=== PATIENT | female | born 1970 | race Caucasian/White ===

== ENCOUNTER 2017-07-28 10:55 | Emergency (ER) | payer OTHER ==
[2017-07-28 11:12] VITALS: BP 149/95
[2017-07-28] MEDS ORDERED: Diazepam 5 MG Tab PO ONE (11:18)
[2017-07-28] MEDS ORDERED: HYDROmorphone 1 MG/ML Syringe IM ONE (11:18)
--- NOTE | 2017-07-28 12:28 | EDM.PDOC ---
ED HPI GENERAL MEDICAL PROBLEM - General Chief Complaint: Back Pain or Injury Stated Complaint: BACK SPASMS Time Seen by Provider: 07/28/17 11:06 Source of Information: Reports: Patient History Limitations: Reports: No Limitations - History of Present Illness INITIAL COMMENTS - FREE TEXT/NARRATIVE: The patient presents with right upper back pain. Two days ago she had nausea and vomiting and after vomiting once she developed pain in her right upper back with cramping. She has some tingling in her arms but no weakness. This has happened before. She was seen at the clinic in [place] and they put her on some flexeril but it does not appear to be helping. Onset: Sudden Duration: Day(s): (2) Location: Reports: Back Quality: Reports: Other (cramping) Severity: Severe Improves with: Reports: None Worsens with: Reports: None Associated Symptoms: Reports: No Other Symptoms Upper Back Pain Score (Numeric/FACES): 7 - Related Data Allergies Allergy/AdvReac Type Severity Reaction Status Date / Time codeine Allergy Rash Verified 08/22/16 11:05 morphine Allergy Vomiting Verified 08/22/16 11:05 Home Meds: Home Meds Aspirin [Halfprin] 81 mg PO BRK 08/22/16 [History] Calcium Carbonate [Calcium] 1,200 mg PO DAILY 08/22/16 [History] Cholecalciferol (Vitamin D3) [Vitamin D3] 2,000 unit PO DAILY 08/22/16 [History] Hydrochlorothiazide 25 mg PO DAILY 08/22/16 [History] Lisinopril 20 mg PO BID 08/22/16 [History] Metoprolol Tartrate 50 mg PO BID 08/22/16 [History] Pravastatin [Pravachol] 20 mg PO DAILY 08/22/16 [History] metFORMIN [Glucophage] 500 mg PO BIDMEALS 08/22/16 [History] predniSONE [Prednisone] 20 mg PO DAILY #5 tablet 08/22/16 [Rx] sulfaSALAzine 1,500 mg PO BID 08/22/16 [History] Diazepam [Valium] 5 mg PO TID PRN #20 tablet 07/28/17 [Rx] Flexirle 5 mg PO ASDIRECTED 07/28/17 [History] Past Medical History HEENT History: Reports: Impaired Vision Other HEENT History: glasses 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: Reports: Hypertension 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: Musculoskeletal History: Reports: Arthritis, Fracture Endocrine/Metabolic History: Reports: Diabetes, Type II Dermatologic History: Reports: Psoriasis - Infectious Disease History Infectious Disease History: Reports: Other (See Below) Other Infectious Disease History: History of hep C but cured - Past Surgical History Female Surgical History: Reports: Hysterectomy Social & Family History - Family History Family Medical History: Noncontributory - Tobacco Use Smoking Status *Q: Former Smoker Years of Tobacco use: 36 Packs/Tins Daily: 1 Used Tobacco, but Quit: Yes Month Tobacco Last Used: 3 months Second Hand Smoke Exposure: No - Caffeine Use Caffeine Use: Reports: Coffee, Soda - Recreational Drug Use Recreational Drug Use: No Recreational Drug Type: Reports: Methamphetamine Recreational Drug Use Frequency: Not Used In Over 6 Months ED ROS GENERAL - Review of Systems Review Of Systems: See Below Constitutional: Reports: No Symptoms HEENT: Reports: No Symptoms Respiratory: Reports: No Symptoms Cardiovascular: Reports: No Symptoms Endocrine: Reports: No Symptoms GI/Abdominal: Reports: No Symptoms : Reports: No Symptoms Musculoskeletal: Reports: Back Pain Skin: Reports: No Symptoms ED EXAM, UPPER BACK/NECK PAIN - Physical Exam Exam: See Below Exam Limited By: No Limitations General Appearance: Alert, No Apparent Distress Ears Exam: Normal External Exam Nose Exam: Normal Inspection Head Exam: Atraumatic, Normocephalic Neck Exam: Non-Tender Cardiovascular/Respiratory: Regular Rate, Rhythm, No M/R/G, Normal Breath Sounds , No Respiratory Distress GI/Abdominal: Soft, Non-Tender, No Organomegaly, No Mass Back Exam: Muscle Spasm (Right upper back) Extremities: Normal Inspection Course - Vital Signs Last Recorded V/S: Last Vital Signs Temp 98.2 F 07/28/17 11:09 Pulse 80 07/28/17 11:09 Resp 20 07/28/17 11:09 BP 149/95 H 07/28/17 11:09 Pulse Ox 98 07/28/17 11:09 - Orders/Labs/Meds Meds: Medications Discontinued Medications Generic Name Dose Route Start Last Admin Trade Name Freq PRN Reason Stop Dose Admin Diazepam 10 mg 07/28/17 11:18 07/28/17 11:24 Valium. PO 07/28/17 11:19 10 mg ONETIME ONE Administration Hydromorphone HCl 1 mg 07/28/17 11:18 07/28/17 11:25 Dilaudid IM 07/28/17 11:19 1 mg ONETIME ONE Administration - Re-Assessments/Exams Free Text/Narrative Re-Assessment/Exam: 07/28/17 12:27 I ordered dilaudid 1mg IM and [id number] by mouth. She feels better after that. I will switch her from flexeril to valium. Departure - Departure Time of Disposition: 12:30 Disposition: Home, Self-Care 01 Condition: Good Clinical Impression: Spasm of thoracic back muscle - Discharge Information Prescriptions: Diazepam [Valium] 5 mg PO TID PRN #20 tablet PRN Reason: Pain Referrals: Fredi Cast MD [Primary Care Provider] - 1 Week Forms: ED Department Discharge, ED Return to Work/School Form Additional Instructions: Take the valium instead of the flexeril. Take motrin or aleve for pain. Pleas return if you are worse.
== END 2017-07-28 12:50 | disposition home or self-care (01) ==
LOC: JD.ED 10:55
DX: M62.830 Muscle spasm of back (principal); I10 Essential (primary) hypertension; Z88.5 Allergy status to narcotic agent; Z79.899 Other long term (current) drug therapy; Z79.84 Long term (current) use of oral hypoglycemic drugs; Z87.891 Personal history of nicotine dependence; Z79.82 Long term (current) use of aspirin
CPT/HCPCS: 96372; 99283; A9270; J1170

== ENCOUNTER 2017-09-26 13:51 | Emergency (ER) | payer OTHER ==
[2017-09-26] MEDS ORDERED: Metoprolol Tartrate 50 MG Tab PO ONE (14:10)
--- NOTE | 2017-09-26 16:04 | EDM.PDOC ---
ED HPI GENERAL MEDICAL PROBLEM - General Chief Complaint: Cardiovascular Problem Stated Complaint: RAPID HEART BEAT Time Seen by Provider: 09/26/17 14:02 Source of Information: Reports: Patient, RN Notes Reviewed - History of Present Illness INITIAL COMMENTS - FREE TEXT/NARRATIVE: 47-year-old female comes in with symptoms of about 2-1/2 hours of rapid pounding heart during the night about 10 hours ago and then occurred again at work about 45 minutes ago. Afternoon the episode lasted about 20-30 minutes. He feels like her heart is still "pounding but not near as bad as it was. Does get dizzy with these episodes. She also does get nauseated and vomit with these episodes. He did have an episode or 2 here about 10-14 days ago. She is on medication for hypertension. She is not diabetic. No recent fever chills cough or other unusual symptomatology. - Related Data Allergies Allergy/AdvReac Type Severity Reaction Status Date / Time codeine Allergy Rash Verified 08/22/16 11:05 morphine Allergy Vomiting Verified 08/22/16 11:05 Home Meds: Home Meds Aspirin [Halfprin] 81 mg PO BRK 08/22/16 [History] Calcium Carbonate [Calcium] 1,200 mg PO DAILY 08/22/16 [History] Cholecalciferol (Vitamin D3) [Vitamin D3] 2,000 unit PO DAILY 08/22/16 [History] Hydrochlorothiazide 25 mg PO DAILY 08/22/16 [History] Lisinopril 20 mg PO BID 08/22/16 [History] Metoprolol Tartrate 50 mg PO BID 08/22/16 [History] Pravastatin [Pravachol] 20 mg PO DAILY 08/22/16 [History] metFORMIN [Glucophage] 500 mg PO BIDMEALS 08/22/16 [History] sulfaSALAzine 1,500 mg PO BID 08/22/16 [History] Adalimumab [Humira] 40 mg IM ASDIRECTED 09/26/17 [History] Potassium 99 mg PO DAILY 09/26/17 [History] Past Medical History HEENT History: Reports: Impaired Vision Other HEENT History: glasses 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: Reports: Hypertension 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: Musculoskeletal History: Reports: Arthritis, Fracture Psychiatric History: Reports: Addiction Endocrine/Metabolic History: Reports: Diabetes, Type II Dermatologic History: Reports: Psoriasis - Infectious Disease History Infectious Disease History: Reports: Other (See Below) Other Infectious Disease History: History of hep C but cured - Past Surgical History Female Surgical History: Reports: Hysterectomy Social & Family History - Family History Family Medical History: Noncontributory - Tobacco Use Smoking Status *Q: Former Smoker Years of Tobacco use: 36 Packs/Tins Daily: 1 Used Tobacco, but Quit: Yes Month Tobacco Last Used: 04/23/17 Second Hand Smoke Exposure: No - Caffeine Use Caffeine Use: Reports: Coffee, Soda - Alcohol Use Days Per Week of Alcohol Use: 7 Number of Drinks Per Day: 8 Total Drinks Per Week: 56 - Recreational Drug Use Recreational Drug Use: Yes Drug Use in Last 12 Months: No Recreational Drug Type: Reports: Methamphetamine Recreational Drug Use Frequency: Not Used In Over 6 Months ED ROS GENERAL - Review of Systems Review Of Systems: See Below Constitutional: Denies: Fever, Chills, Diaphoresis HEENT: Denies: Throat Pain, Vertigo Respiratory: Denies: Shortness of Breath ED EXAM, GENERAL - Physical Exam Exam: See Below General Appearance: Alert, Anxious (Mild) Eye Exam: Bilateral Eye: PERRL Throat/Mouth: Normal Inspection Head: Atraumatic. No: Facial Swelling Neck: Supple, Full Range of Motion Respiratory/Chest: No Respiratory Distress, Lungs Clear, Normal Breath Sounds Cardiovascular: Regular Rate, Rhythm GI/Abdominal: Soft, Non-Tender Back Exam: No: CVA Tenderness (L), CVA Tenderness (R) Extremities: Normal Inspection, Normal Range of Motion. No: Pedal Edema, Leg Pain, Increased Warmth, Redness Neurological: Alert, Oriented, No Motor/Sensory Deficits Skin Exam: Warm, Dry, Normal Color EKG INTERPRETATION EKG Date: 09/26/17 Rhythm: NSR [place]: Normal P-Wave: Present QRS: Normal ST-T: Normal Course - Vital Signs Last Recorded V/S: Last Vital Signs Temp 97.1 F 09/26/17 14:01 Pulse 72 09/26/17 16:13 Resp 22 H 09/26/17 16:13 BP 158/88 H 09/26/17 16:13 Pulse Ox 98 09/26/17 16:13 - Orders/Labs/Meds Orders: Active Orders 24 hr Category Date Time Status EKG 12 Lead [EKG Documentation Completion] [RC] STAT Care 09/26/17 14:10 Active Holter Monitor 48 Hours [RC] .PRN Care 09/26/17 15:51 Active Labs: Laboratory Tests 09/26/17 09/26/17 Range/Units 14:44 14:44 WBC 13.24 H (3.98-10.04) K/mm3 RBC 4.22 (3.98-5.22) M/mm3 Hgb 12.9 (11.2-15.7) gm/L Hct 38.5 (34.1-44.9) % MCV 91.2 (79.4-94.8) fl MCH 30.6 (25.6-32.2) pg MCHC 33.5 (32.2-35.5) g/dl RDW Std Deviation 40.2 (36.4-46.3) fL Plt Count 275 (182-369) K/mm3 MPV 9.5 (9.4-12.3) fl Neutrophils % (Manual) 48 (40-60) % Band Neutrophils % 1 (0-10) % Lymphocytes % (Manual) 41 H (20-40) % Atypical Lymphs % 0 % Monocytes % (Manual) 8 (2-10) % Eosinophils % (Manual) 2 (0.7-5.8) % Basophils % (Manual) 0 L (0.1-1.2) Platelet Estimate Adequate RBC Morph Comment Normal Sodium 134 L (136-145) mEq/L Potassium 3.4 L (3.5-5.1) mEq/L Chloride 99 (98-107) mEq/L Carbon Dioxide 26 (21-32) mEq/L Anion Gap 12.4 (5-15) BUN 17 (7-18) mg/dL Creatinine 0.8 (0.55-1.02) mg/dL Est Cr Clr Drug Dosing TNP Estimated GFR (MDRD) > 60 (>60) mL/min BUN/Creatinine Ratio 21.3 H (14-18) Glucose 100 (74-106) mg/dL Calcium 9.1 (8.5-10.1) mg/dL Total Bilirubin 0.2 (0.2-1.0) mg/dL AST 17 (15-37) U/L ALT 33 (14-59) U/L Alkaline Phosphatase 31 L (46-116) U/L Total Protein 6.9 (6.4-8.2) g/dl Albumin 3.6 (3.4-5.0) g/dl Globulin 3.3 gm/dL Albumin/Globulin Ratio 1.1 (1-2) TSH 3rd Generation 4.858 H (0.358-3.74) uIU/mL Meds: Medications Discontinued Medications Generic Name Dose Route Start Last Admin Trade Name Freq PRN Reason Stop Dose Admin Metoprolol Tartrate 50 mg 09/26/17 14:10 09/26/17 14:27 Lopressor PO 09/26/17 14:11 50 mg ONETIME ONE Administration - Re-Assessments/Exams Free Text/Narrative Re-Assessment/Exam: 09/26/17 19:50. Labs did come back relatively normal, EKG was good, he has maintained in sinus rhythm while here in the ED, no ectopy, we did discharge her with a 48 hour Holter monitor. Departure - Departure Time of Disposition: 16:02 Disposition: Home, Self-Care 01 Condition: Fair Clinical Impression: Palpitations, Dizziness Referrals: Fredi Cast MD [Primary Care Provider] - Forms: ED Department Discharge Additional Instructions: 48 hour Holter monitor. Drink plenty of water to maintain hydration, continue current medications as prescribed. Try avoid excess caffeine. Your thyroid is testing mildly low. Follow-up with Dr. Winters in about 3-4 days, call for appointment tomorrow morning. Return to ED if symptoms worsening in any way. - My Orders Last 24 Hours: My Active Orders 09/26/17 14:10 EKG 12 Lead [EKG Documentation Completion] [RC] STAT 09/26/17 15:51 Holter Monitor 48 Hours [RC] .PRN - Assessment/Plan Last 24 Hours: My Active Orders 09/26/17 14:10 EKG 12 Lead [EKG Documentation Completion] [RC] STAT 09/26/17 15:51 Holter Monitor 48 Hours [RC] .PRN
[2017-09-26 16:15] VITALS: BP 158/88
== END 2017-09-26 16:15 | disposition home or self-care (01) ==
LOC: JD.ED 13:51
DX: R42 Dizziness and giddiness (principal); R00.2 Palpitations; I10 Essential (primary) hypertension; E11.9 Type 2 diabetes mellitus without complications; Z87.891 Personal history of nicotine dependence; Z88.5 Allergy status to narcotic agent; Z79.82 Long term (current) use of aspirin; Z79.899 Other long term (current) drug therapy
CPT/HCPCS: 36415; 80053; 84443; 85025; 93005; 93225; 93226; 99285; A9270

== ENCOUNTER 2018-03-30 08:24 | Emergency (ER) | payer OTHER ==
[2018-03-30] MEDS ORDERED: Sodium Chloride 0.9% 10 ML Syringe FLUSH PRN (08:54)
[2018-03-30] MEDS ORDERED: Sodium Chloride 0.9% 1,000 ML IV ONE (08:54)
[2018-03-30] MEDS ORDERED: Magnesium Sulfate/Water 2 GM in Premix Bag 1 BAG IV ONE (09:34)
--- NOTE | 2018-03-30 09:40 | EDM.PDOC ---
ED HPI GENERAL MEDICAL PROBLEM - General Chief Complaint: Cardiovascular Problem Stated Complaint: HIGH BP/HIGH HEART RATE Time Seen by Provider: 03/30/18 08:34 Source of Information: Reports: Patient History Limitations: Reports: No Limitations - History of Present Illness INITIAL COMMENTS - FREE TEXT/NARRATIVE: The patient is a 47-year-old female with a chief complaint of palpitations. This started at about 3 AM. It woke her up from sleep. She had a sudden feeling of her heart racing. She took her pulse and it was around 130. She felt vaguely ill and weak. She continued to try to go back to sleep but didn't get much sleep for the rest of the night. This morning she still just felt mildly ill and generally weak. No chest pain. No shortness of breath. She did have nausea and 1 episode of vomiting this morning. No longer nauseated. She did take her usual morning medications, which do include metoprolol 100 mg, hydrochlorothiazide, and spironolactone. She also takes lisinopril and another 100 mg of metoprolol at night. No fever. No recent illness. No cough or difficulty breathing. She has some mild right jawline dental pain but no facial swelling and the pain isn't severe. No recent immobilization. No lower extremity pain or swelling. No estrogen use. Headache Pain Score (Numeric/FACES): 4 - Related Data Allergies Allergy/AdvReac Type Severity Reaction Status Date / Time codeine Allergy Rash Verified 03/30/18 08:36 morphine Allergy Vomiting Verified 03/30/18 08:36 Home Meds: Home Meds Aspirin [Halfprin] 81 mg PO DAILY 08/22/16 [History] Calcium Carbonate [Calcium] 1,200 mg PO DAILY 08/22/16 [History] Cholecalciferol (Vitamin D3) [Vitamin D3] 2,000 unit PO DAILY 08/22/16 [History] Hydrochlorothiazide 25 mg PO DAILY 08/22/16 [History] Lisinopril 20 mg PO DAILY 08/22/16 [History] Metoprolol Tartrate 100 mg PO BID 08/22/16 [History] Pravastatin [Pravachol] 20 mg PO DAILY 08/22/16 [History] metFORMIN [Glucophage] 500 mg PO BIDMEALS 08/22/16 [History] sulfaSALAzine 1,500 mg PO BID 08/22/16 [History] Adalimumab [Humira] 40 mg IM ASDIRECTED 09/26/17 [History] Cyclobenzaprine [Flexeril] 10 mg PO Q2H PRN 03/30/18 [History] Folic Acid 1 mg PO DAILY 03/30/18 [History] Spironolactone 50 mg PO DAILY 03/30/18 [History] Past Medical History HEENT History: Reports: Impaired Vision Other HEENT History: glasses 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: Reports: Hypertension 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: Musculoskeletal History: Reports: Arthritis, Fracture Psychiatric History: Reports: Addiction Endocrine/Metabolic History: Reports: Diabetes, Type II Dermatologic History: Reports: Psoriasis - Infectious Disease History Infectious Disease History: Reports: Other (See Below) Other Infectious Disease History: History of hep C but cured - Past Surgical History Female Surgical History: Reports: Hysterectomy Social & Family History - Family History Family Medical History: Noncontributory - Tobacco Use Smoking Status *Q: Former Smoker Used Tobacco, but Quit: Yes Month/Year Tobacco Last Used: 2016 - Caffeine Use Caffeine Use: Reports: Coffee - Recreational Drug Use Recreational Drug Use: No ED ROS GENERAL - Review of Systems Review Of Systems: See Below Constitutional: Reports: Malaise, Weakness. Denies: Fever HEENT: Reports: No Symptoms Respiratory: Denies: Shortness of Breath Cardiovascular: Reports: Palpitations. Denies: Chest Pain Endocrine: Reports: No Symptoms GI/Abdominal: Reports: Nausea. Denies: Abdominal Pain Musculoskeletal: Reports: No Symptoms Skin: Reports: No Symptoms Neurological: Reports: No Symptoms Psychiatric: Reports: No Symptoms Hematologic/Lymphatic: Reports: No Symptoms Immunologic: Reports: No Symptoms ED EXAM, GENERAL - Physical Exam Exam: See Below Exam Limited By: No Limitations General Appearance: Alert, WD/WN, No Apparent Distress Eye Exam: Bilateral Eye: Normal Inspection Ears: Normal External Exam Nose: Normal Inspection Throat/Mouth: Normal Inspection, Normal Oropharynx, Normal Voice Head: Atraumatic, Normocephalic Neck: Normal Inspection, Supple, Non-Tender Respiratory/Chest: No Respiratory Distress, Lungs Clear, Normal Breath Sounds, Chest Non-Tender Cardiovascular: Normal Peripheral Pulses, Regular Rate, Rhythm, No Edema Peripheral Pulses: 2+: Radial (R) GI/Abdominal: Non-Tender, No Distention. No: Rebound Back Exam: Normal Inspection Extremities: Normal Inspection Neurological: Alert, Oriented, Normal Cognition, No Motor/Sensory Deficits Psychiatric: Normal Affect, Normal Mood Skin Exam: Warm, Dry, Intact, Normal Color, No Rash Course - Vital Signs Last Recorded V/S: Last Vital Signs Temp 35.9 C 03/30/18 08:32 Pulse 80 03/30/18 11:31 Resp 16 03/30/18 11:31 BP 156/78 H 03/30/18 11:31 Pulse Ox 97 03/30/18 11:31 - Orders/Labs/Meds Orders: Active Orders 24 hr Category Date Time Status EKG 12 Lead [EKG Documentation Completion] [RC] STAT Care 03/30/18 08:32 Active Peripheral IV Care [RC] . DIRECTED Care 03/30/18 08:54 Active Peripheral IV Care [RC] . DIRECTED Care 03/30/18 08:54 Active Peripheral IV Insertion Adult [OM.PC] Routine Oth 03/30/18 08:54 Ordered Labs: Laboratory Tests 03/30/18 03/30/18 Range/Units 08:35 08:35 WBC 8.61 (3.98-10.04) K/mm3 RBC 4.83 (3.98-5.22) M/mm3 Hgb 14.7 (11.2-15.7) gm/L Hct 43.5 (34.1-44.9) % MCV 90.1 (79.4-94.8) fl MCH 30.4 (25.6-32.2) pg MCHC 33.8 (32.2-35.5) g/dl RDW Std Deviation 40.6 (36.4-46.3) fL Plt Count 279 (182-369) K/mm3 MPV 9.7 (9.4-12.3) fl Neut % (Auto) 46.6 (34.0-71.1) % Lymph % (Auto) 42.2 (19.3-51.7) % [place] % (Auto) 7.2 (4.7-12.5) % Eos % (Auto) 3.1 (0.7-5.8) Baso % (Auto) 0.3 (0.1-1.2) % Neut # (Auto) 4.01 (1.56-6.13) K/mm3 Lymph # (Auto) 3.63 (1.18-3.74) K/mm3 [place] # (Auto) 0.62 H (0.24-0.36) K/mm3 Eos # (Auto) 0.27 (0.04-0.36) K/mm3 Baso # (Auto) 0.03 (0.01-0.08) K/mm3 Sodium 138 (136-145) mEq/L Potassium 3.6 (3.5-5.1) mEq/L Chloride 99 (98-107) mEq/L Carbon Dioxide 27 (21-32) mEq/L Anion Gap 15.6 H (5-15) BUN 16 (7-18) mg/dL Creatinine 1.1 H (0.55-1.02) mg/dL Est Cr Clr Drug Dosing 57.91 mL/min Estimated GFR (MDRD) 53 (>60) mL/min BUN/Creatinine Ratio 14.5 (14-18) Glucose 130 H (74-106) mg/dL Calcium 10.2 H (8.5-10.1) mg/dL Magnesium 1.5 L (1.8-2.4) mg/dl Total Bilirubin 0.3 (0.2-1.0) mg/dL AST 40 H (15-37) U/L ALT 56 (14-59) U/L Alkaline Phosphatase 49 (46-116) U/L Troponin I < 0.017 (0.00-0.056) ng/mL Total Protein 8.1 (6.4-8.2) g/dl Albumin 4.0 (3.4-5.0) g/dl Globulin 4.1 gm/dL Albumin/Globulin Ratio 1.0 (1-2) Lipase 118 (73-393) U/L Meds: Medications Discontinued Medications Generic Name Dose Route Start Last Admin Trade Name Freq PRN Reason Stop Dose Admin Sodium Chloride 1,000 mls @ 1,000 mls/hr 03/30/18 08:54 03/30/18 09:00 Normal Saline IV 03/30/18 09:53 1,000 mls/hr ONETIME ONE Administration Magnesium Sulfate 2 gm/ Premix 50 mls @ 25 mls/hr 03/30/18 09:34 03/30/18 09: 47 IV 03/30/18 11:33 25 mls/hr ONETIME ONE Administration Sodium Chloride 10 ml 03/30/18 08:54 03/30/18 09:01 Saline Flush FLUSH 10 ml ASDIRECTED PRN Administration Keep Vein Open - Re-Assessments/Exams Free Text/Narrative Re-Assessment/Exam: 03/30/18 09:36 EKG shows NSR, no evidence of ischemia or arrhythmia. CBC normal. Chem normal except mildly low magnesium, will replete. Trop neg. BP mildly elevated upon arrival, but now 140's/80's. She has taken all of her home meds today. No clear explanation for last night's episode of palpitations/tachycardia. She has had a 48 hr holter previously. Encouraged her to f/u with PCP, who could consider event monitor if she continues to have episodes. Discussed ED return precautions. 03/30/18 09:36 Departure - Departure Time of Disposition: 09:40 Disposition: Home, Self-Care 01 Clinical Impression: Palpitations Instructions: Palpitations, [id number] Referrals: Fredi Cast MD [Primary Care Provider] - Forms: ED Department Discharge Additional Instructions: 1. continue all of your current medications with no changes 2. Follow up with your primary care provider as soon as possible. Your primary care provider may consider further testing if you continue to have episodes of palpitations/high heart rate. 3. Return to the ED as needed for any new heart racing, chest pain, difficulty breathing, or other concerning symptoms. - My Orders Last 24 Hours: My Active Orders 03/30/18 08:32 EKG 12 Lead [EKG Documentation Completion] [RC] STAT 03/30/18 08:54 Peripheral IV Care [RC] . DIRECTED Peripheral IV Care [RC] . DIRECTED Peripheral IV Insertion Adult [OM.PC] Routine - Assessment/Plan Last 24 Hours: My Active Orders 03/30/18 08:32 EKG 12 Lead [EKG Documentation Completion] [RC] STAT 03/30/18 08:54 Peripheral IV Care [RC] . DIRECTED Peripheral IV Care [RC] . DIRECTED Peripheral IV Insertion Adult [OM.PC] Routine
--- NOTE | 2018-03-30 09:45 | CR ---
Chest: Portable view of the chest was obtained. Comparison: No prior chest x-ray. Heart size and mediastinum are normal. Lungs are clear. Bony structures are grossly intact. Impression: 1. Nothing acute is seen on portable chest x-ray. Diagnostic code #1
[2018-03-30 11:33] VITALS: BP 156/78
== END 2018-03-30 11:31 | disposition home or self-care (01) ==
LOC: JD.ED 08:24
DX: R00.2 Palpitations (principal); I10 Essential (primary) hypertension; E11.9 Type 2 diabetes mellitus without complications; Z79.84 Long term (current) use of oral hypoglycemic drugs; Z88.5 Allergy status to narcotic agent; Z79.82 Long term (current) use of aspirin; Z79.899 Other long term (current) drug therapy; Z87.891 Personal history of nicotine dependence
CPT/HCPCS: 36415; 71045; 80053; 83690; 83735; 84484; 85025; 93005; 96361; 96365; 96366; 99284; J7040; J7050; 93010; J3475